=== PATIENT | male | born 1980 | race Caucasian/White ===

== ENCOUNTER 2016-12-18 12:17 | Emergency (ER) | payer MEDICAID, OTHER ==
[2016-12-18 12:41] VITALS: BP 149/85
--- NOTE | 2016-12-18 13:01 | EDM.PDOCBH ---
ED HPI GENERAL MEDICAL PROBLEM - General Chief Complaint: Drug or Alcohol Abuse Stated Complaint: DETOX Time Seen by Provider: 12/18/16 12:56 Source of Information: Reports: Patient, RN Notes Reviewed History Limitations: Reports: No Limitations - History of Present Illness INITIAL COMMENTS - FREE TEXT/NARRATIVE: 36-year-old gentleman presents emergency department today requesting to go to detoxification facility, he was recently released from detox unfortunately he did not do well while out started consuming alcohol again last drink was this morning he would like to return he has no other complaints denies Pain Score (Numeric/FACES): 0 - Related Data Allergies Allergy/AdvReac Type Severity Reaction Status Date / Time No Known Allergies Allergy Verified 12/18/16 12:44 Home Meds: Home Meds Acetaminophen [Tylenol Extra Strength] 1,000 mg ORAL.INH Q4HR PRN 08/16/14 [ History] Citalopram Hydrobromide [Celexa] 20 mg PO DAILY 12/18/16 [History] Past Medical History Psychiatric History: Reports: Addiction - Past Surgical History HEENT Surgical History: Reports: Other (See Below) Other HEENT Surgeries/Procedures: ear surgery x 2 Social & Family History - Tobacco Use Smoking Status *Q: Current Every Day Smoker Years of Tobacco use: 14 Packs/Tins Daily: 1 Used Tobacco, but Quit: No Month Tobacco Last Used: 1 Second Hand Smoke Exposure: Yes - Alcohol Use Days Per Week of Alcohol Use: 7 Number of Drinks Per Day: 5 Total Drinks Per Week: 35 - Recreational Drug Use Recreational Drug Use: No ED ROS GENERAL - Review of Systems Review Of Systems: See Below Constitutional: Reports: No Symptoms Respiratory: Reports: No Symptoms Cardiovascular: Reports: No Symptoms GI/Abdominal: Reports: No Symptoms Psychiatric: Reports: Cravings ED EXAM, BEHAVIORAL HEALTH - Physical Exam Exam: See Below Exam Limited By: No Limitations General Appearance: Alert, WD/WN, No Apparent Distress Respiratory/Chest: No Respiratory Distress, Lungs Clear, Normal Breath Sounds, No Accessory Muscle Use Cardiovascular: Regular Rate, Rhythm, No Murmur COURSE, BEHAVIORAL HEALTH COMP - Course Vital Signs: Last Vital Signs Temp 98.6 F 12/18/16 12:40 Pulse 104 H 12/18/16 12:40 Resp 17 12/18/16 12:40 BP 149/85 H 12/18/16 12:40 Pulse Ox 96 12/18/16 12:40 Orders, Labs, Meds: Laboratory Tests 12/18/16 12/18/16 12/18/16 Range/Units 13:13 13:13 13:13 WBC 10.5 (4.5-11.0) K/uL RBC 4.76 (4.30-5.90) M/uL Hgb 15.1 H (12.0-15.0) g/dL Hct 44.0 (40.0-54.0) % MCV 92 (80-98) fL MCH 32 H (27-31) pg MCHC 34 (32-36) % Plt Count 271 (150-400) K/uL Neut % (Auto) 79 H (36-66) % Lymph % (Auto) 11 L (24-44) % [place] % (Auto) 10 H (2-6) % Eos % (Auto) 0 L (2-4) % Baso % (Auto) 0 (0-1) % Sodium 144 (140-148) mmol/L Potassium 3.2 L (3.6-5.2) mmol/L Chloride 105 (100-108) mmol/L Carbon Dioxide 31 (21-32) mmol/L Anion Gap 11.2 (5.0-14.0) mmol/L BUN 8 (7-18) mg/dL Creatinine 0.9 (0.8-1.3) mg/dL Est Cr Clr Drug Dosing 133.19 mL/min Estimated GFR (MDRD) > 60 (>60) Glucose 99 (74-106) mg/dL Calcium 8.6 (8.5-10.1) mg/dL Total Bilirubin 0.4 (0.2-1.0) mg/dL AST 99 H (15-37) U/L ALT 88 H (12-78) U/L Alkaline Phosphatase 102 (46-116) U/L Total Protein 7.5 (6.4-8.2) g/dL Albumin 4.0 (3.4-5.0) g/dL Globulin 3.5 (2.3-3.5) g/dL Albumin/Globulin Ratio 1.1 L (1.2-2.2) Urine Color Urine Appearance Urine pH (4.5-8.0) Ur Specific [place] (1.008-1.030) Urine Protein (NEGATIVE) mg/dL Urine Glucose (UA) (NEGATIVE) mg/dL Urine Ketones (NEGATIVE) mg/dL Urine Occult Blood (NEGATIVE) Urine Nitrite (NEGAITVE) Urine Bilirubin (NEGATIVE) Urine Urobilinogen (NORMAL) mg/dL Ur Leukocyte Esterase (NEGATIVE) Urine RBC (0-5) Urine WBC (0-5) Ur Epithelial Cells Amorphous Sediment Urine Bacteria Urine Mucus Urine Opiates Screen (NEGATIVE) Ur Oxycodone Screen (NEGATIVE) Urine Methadone Screen (NEGATIVE) Ur Propoxyphene Screen (NEGATIVE) Ur Barbiturates Screen (NEGATIVE) Ur Tricyclics Screen (NEGATIVE) Ur Phencyclidine Scrn (NEGATIVE) Ur Amphetamine Screen (NEGATIVE) U Methamphetamines Scrn (NEGATIVE) Urine MDMA Screen (NEGATIVE) U Benzodiazepines Scrn (NEGATIVE) U Cocaine Metab Screen (NEGATIVE) U Marijuana (THC) Screen (NEGATIVE) Ethyl Alcohol 129 mg/dL 12/18/16 12/18/16 Range/Units 13:24 13:24 WBC (4.5-11.0) K/uL RBC (4.30-5.90) M/uL Hgb (12.0-15.0) g/dL Hct (40.0-54.0) % MCV (80-98) fL MCH (27-31) pg MCHC (32-36) % Plt Count (150-400) K/uL Neut % (Auto) (36-66) % Lymph % (Auto) (24-44) % [place] % (Auto) (2-6) % Eos % (Auto) (2-4) % Baso % (Auto) (0-1) % Sodium (140-148) mmol/L Potassium (3.6-5.2) mmol/L Chloride (100-108) mmol/L Carbon Dioxide (21-32) mmol/L Anion Gap (5.0-14.0) mmol/L BUN (7-18) mg/dL Creatinine (0.8-1.3) mg/dL Est Cr Clr Drug Dosing mL/min Estimated GFR (MDRD) (>60) Glucose (74-106) mg/dL Calcium (8.5-10.1) mg/dL Total Bilirubin (0.2-1.0) mg/dL AST (15-37) U/L ALT (12-78) U/L Alkaline Phosphatase (46-116) U/L Total Protein (6.4-8.2) g/dL Albumin (3.4-5.0) g/dL Globulin (2.3-3.5) g/dL Albumin/Globulin Ratio (1.2-2.2) Urine Color Yellow Urine Appearance Clear Urine pH 8.0 (4.5-8.0) Ur Specific [place] 1.010 (1.008-1.030) Urine Protein Negative (NEGATIVE) mg/dL Urine Glucose (UA) Normal (NEGATIVE) mg/dL Urine Ketones Negative (NEGATIVE) mg/dL Urine Occult Blood Negative (NEGATIVE) Urine Nitrite Negative (NEGAITVE) Urine Bilirubin Negative (NEGATIVE) Urine Urobilinogen 1 (NORMAL) mg/dL Ur Leukocyte Esterase Negative (NEGATIVE) Urine RBC 0-5 (0-5) Urine WBC 0-5 (0-5) Ur Epithelial Cells Rare Amorphous Sediment Not seen Urine Bacteria Not seen Urine Mucus Not seen Urine Opiates Screen Negative (NEGATIVE) Ur Oxycodone Screen Negative (NEGATIVE) Urine Methadone Screen Negative (NEGATIVE) Ur Propoxyphene Screen Negative (NEGATIVE) Ur Barbiturates Screen Negative (NEGATIVE) Ur Tricyclics Screen Negative (NEGATIVE) Ur Phencyclidine Scrn Negative (NEGATIVE) Ur Amphetamine Screen Negative (NEGATIVE) U Methamphetamines Scrn Negative (NEGATIVE) Urine MDMA Screen Negative (NEGATIVE) U Benzodiazepines Scrn Negative (NEGATIVE) U Cocaine Metab Screen Negative (NEGATIVE) U Marijuana (THC) Screen Negative (NEGATIVE) Ethyl Alcohol mg/dL Departure - Departure Time of Disposition: 14:00 Disposition: DC/Tfer to Inpt Rehab Fac 62 Condition: Fair Clinical Impression: Alcohol abuse - Discharge Information Forms: ED Department Discharge - Assessment/Plan Plan: Assessment Acuity = acute Site and laterality = alcohol abuse and intoxication Etiology = alcohol Manifestations = none Location of injury = Home Lab values = potassium low at 3.2 consistent hypokalemia AST elevated at 99 ALTs elevated at 88 urinalysis negative alcohol is 129 urine drug screen negative Plan I did review lab work with him as well as his urinalysis and drug screen plan is to discharge to [place] or detoxification Patient was in agreement with the plan all questions were answered, they were instructed to return to the emergency department or call for worsening symptoms. This note was dictated using [employer] voice recognition software please call with any questions.
== END 2016-12-18 15:10 ==
LOC: JP.ED 12:17
DX: F10.129 Alcohol abuse with intoxication, unspecified (principal); Y90.6 Blood alcohol level of 120-199 mg/100 ml; F17.210 Nicotine dependence, cigarettes, uncomplicated; Z98.890 Other specified postprocedural states; Z79.899 Other long term (current) drug therapy
CPT/HCPCS: 36415; 80053; 80305; 81001; 85025; 99285; G0480; 99283

== ENCOUNTER 2017-01-30 05:23 | Emergency (ER) | payer BC, MEDICAID, OTHER ==
[2017-01-30 05:43] VITALS: BP 140/89
--- NOTE | 2017-01-30 05:49 | EDM.PDOCBH ---
ED HPI GENERAL MEDICAL PROBLEM - General Chief Complaint: Drug or Alcohol Abuse Stated Complaint: DETOX TO [facility] Time Seen by Provider: 01/30/17 05:27 Source of Information: Reports: Patient, RN Notes Reviewed History Limitations: Reports: No Limitations - History of Present Illness INITIAL COMMENTS - FREE TEXT/NARRATIVE: 36-year-old gentleman presents emergency department today requesting to go to detox he has been on a 1 week stretch of alcohol abuse, he is here for medical clearance has no complaints denies pain Pain Score (Numeric/FACES): 0 - Related Data Allergies Allergy/AdvReac Type Severity Reaction Status Date / Time No Known Allergies Allergy Verified 01/30/17 05:34 Home Meds: Home Meds Acetaminophen [Tylenol Extra Strength] 1,000 mg PO Q4HR PRN 08/16/14 [History] Citalopram Hydrobromide [Celexa] 20 mg PO DAILY 12/18/16 [History] Past Medical History Musculoskeletal History: Reports: Fracture, Other (See Below) Other Musculoskeletal History: left middle finger fracture Psychiatric History: Reports: Addiction - Infectious Disease History Infectious Disease History: Reports: Chicken Pox - Past Surgical History HEENT Surgical History: Reports: Other (See Below) Other HEENT Surgeries/Procedures: ear surgery x 2 Social & Family History - Tobacco Use Smoking Status *Q: Current Every Day Smoker Years of Tobacco use: 14 Packs/Tins Daily: 1 Used Tobacco, but Quit: No Month Tobacco Last Used: 1 Second Hand Smoke Exposure: Yes - Caffeine Use Caffeine Use: Reports: Energy Drinks, Soda - Alcohol Use Days Per Week of Alcohol Use: 7 Number of Drinks Per Day: 5 Total Drinks Per Week: 35 Date of Last Drink: 01/29/17 Time of Last Drink: 20:30 - Recreational Drug Use Recreational Drug Use: No ED ROS GENERAL - Review of Systems Review Of Systems: See Below Constitutional: Reports: No Symptoms Respiratory: Reports: No Symptoms Cardiovascular: Reports: No Symptoms GI/Abdominal: Reports: No Symptoms ED EXAM, BEHAVIORAL HEALTH - Physical Exam Exam: See Below Exam Limited By: No Limitations General Appearance: Alert, WD/WN, No Apparent Distress Respiratory/Chest: No Respiratory Distress, Lungs Clear, Normal Breath Sounds, No Accessory Muscle Use Cardiovascular: Regular Rate, Rhythm, No Murmur GI/Abdominal: Soft, Non-Tender COURSE, BEHAVIORAL HEALTH COMP - Course Vital Signs: Last Vital Signs Temp 98.2 F 01/30/17 05:42 Pulse 133 H 01/30/17 05:42 Resp 20 01/30/17 05:42 BP 140/89 01/30/17 05:42 Pulse Ox 99 01/30/17 05:42 Orders, Labs, Meds: Laboratory Tests 01/30/17 01/30/17 01/30/17 Range/Units 05:28 05:53 05:53 WBC 11.5 H (4.5-11.0) K/uL RBC 5.10 (4.30-5.90) M/uL Hgb 16.4 H (12.0-15.0) g/dL Hct 46.0 (40.0-54.0) % MCV 90 (80-98) fL MCH 32 H (27-31) pg MCHC 36 (32-36) % Plt Count 173 (150-400) K/uL Neut % (Auto) 77 H (36-66) % Lymph % (Auto) 15 L (24-44) % [place] % (Auto) 5 (2-6) % Eos % (Auto) 2 (2-4) % Baso % (Auto) 0 (0-1) % Sodium (140-148) mmol/L Potassium (3.6-5.2) mmol/L Chloride (100-108) mmol/L Carbon Dioxide (21-32) mmol/L Anion Gap (5.0-14.0) mmol/L BUN (7-18) mg/dL Creatinine (0.8-1.3) mg/dL Est Cr Clr Drug Dosing mL/min Estimated GFR (MDRD) (>60) Glucose (74-106) mg/dL Calcium (8.5-10.1) mg/dL Total Bilirubin (0.2-1.0) mg/dL AST (15-37) U/L ALT (12-78) U/L Alkaline Phosphatase (46-116) U/L Total Protein (6.4-8.2) g/dL Albumin (3.4-5.0) g/dL Globulin (2.3-3.5) g/dL Albumin/Globulin Ratio (1.2-2.2) Urine Color Yellow Urine Appearance Clear Urine pH 6.0 (4.5-8.0) Ur Specific [place] 1.020 (1.008-1.030) Urine Protein 100 H (NEGATIVE) mg/dL Urine Glucose (UA) 250 H (NEGATIVE) mg/dL Urine Ketones 15 H (NEGATIVE) mg/dL Urine Occult Blood Moderate (NEGATIVE) Urine Nitrite Negative (NEGAITVE) Urine Bilirubin Small (NEGATIVE) Urine Urobilinogen 4 (NORMAL) mg/dL Ur Leukocyte Esterase Negative (NEGATIVE) Urine RBC 0-5 (0-5) Urine WBC 0-5 (0-5) Ur Epithelial Cells Few Amorphous Sediment Few Urine Bacteria Many Urine Mucus Many Urine Opiates Screen Negative (NEGATIVE) Ur Oxycodone Screen Negative (NEGATIVE) Urine Methadone Screen Negative (NEGATIVE) Ur Propoxyphene Screen Negative (NEGATIVE) Ur Barbiturates Screen Negative (NEGATIVE) Ur Tricyclics Screen Negative (NEGATIVE) Ur Phencyclidine Scrn Negative (NEGATIVE) Ur Amphetamine Screen Negative (NEGATIVE) U Methamphetamines Scrn Negative (NEGATIVE) Urine MDMA Screen Negative (NEGATIVE) U Benzodiazepines Scrn Positive H (NEGATIVE) U Cocaine Metab Screen Negative (NEGATIVE) U Marijuana (THC) Screen Negative (NEGATIVE) Ethyl Alcohol mg/dL 01/30/17 01/30/17 Range/Units 05:57 05:57 WBC (4.5-11.0) K/uL RBC (4.30-5.90) M/uL Hgb (12.0-15.0) g/dL Hct (40.0-54.0) % MCV (80-98) fL MCH (27-31) pg MCHC (32-36) % Plt Count (150-400) K/uL Neut % (Auto) (36-66) % Lymph % (Auto) (24-44) % [place] % (Auto) (2-6) % Eos % (Auto) (2-4) % Baso % (Auto) (0-1) % Sodium 137 L (140-148) mmol/L Potassium 3.0 L (3.6-5.2) mmol/L Chloride 97 L (100-108) mmol/L Carbon Dioxide 30 (21-32) mmol/L Anion Gap 13.0 (5.0-14.0) mmol/L BUN 9 (7-18) mg/dL Creatinine 0.9 (0.8-1.3) mg/dL Est Cr Clr Drug Dosing 133.19 mL/min Estimated GFR (MDRD) > 60 (>60) Glucose 133 H (74-106) mg/dL Calcium 8.2 L (8.5-10.1) mg/dL Total Bilirubin 0.4 (0.2-1.0) mg/dL AST 619 H D (15-37) U/L ALT 638 H (12-78) U/L Alkaline Phosphatase 123 H (46-116) U/L Total Protein 7.6 (6.4-8.2) g/dL Albumin 4.1 (3.4-5.0) g/dL Globulin 3.5 (2.3-3.5) g/dL Albumin/Globulin Ratio 1.2 (1.2-2.2) Urine Color Urine Appearance Urine pH (4.5-8.0) Ur Specific [place] (1.008-1.030) Urine Protein (NEGATIVE) mg/dL Urine Glucose (UA) (NEGATIVE) mg/dL Urine Ketones (NEGATIVE) mg/dL Urine Occult Blood (NEGATIVE) Urine Nitrite (NEGAITVE) Urine Bilirubin (NEGATIVE) Urine Urobilinogen (NORMAL) mg/dL Ur Leukocyte Esterase (NEGATIVE) Urine RBC (0-5) Urine WBC (0-5) Ur Epithelial Cells Amorphous Sediment Urine Bacteria Urine Mucus Urine Opiates Screen (NEGATIVE) Ur Oxycodone Screen (NEGATIVE) Urine Methadone Screen (NEGATIVE) Ur Propoxyphene Screen (NEGATIVE) Ur Barbiturates Screen (NEGATIVE) Ur Tricyclics Screen (NEGATIVE) Ur Phencyclidine Scrn (NEGATIVE) Ur Amphetamine Screen (NEGATIVE) U Methamphetamines Scrn (NEGATIVE) Urine MDMA Screen (NEGATIVE) U Benzodiazepines Scrn (NEGATIVE) U Cocaine Metab Screen (NEGATIVE) U Marijuana (THC) Screen (NEGATIVE) Ethyl Alcohol 125 mg/dL Departure - Departure Time of Disposition: 06:38 Disposition: DC/Tfer to Inpt Rehab Fac 62 Condition: Fair Clinical Impression: Alcohol abuse - Discharge Information Referrals: PCP,None [Primary Care Provider] - Forms: ED Department Discharge - Assessment/Plan Plan: Assessment Acuity = chronic Site and laterality = alcohol abuse and intoxication Etiology = alcohol Manifestations = elevated liver enzymes Location of injury = Home Lab values = WBC elevated 11.5 consistent with leukocytosis, sodium low at 137 consistent hyponatremia potassium low at 3.0 consistent hypokalemia AST elevated at 619 ALTs elevated at 638 consistent elevated liver enzymes urinalysis is a protein of 100 consistent proteinuria glucose of 250 consistent glucose urea ketones of 15 consistent ketonuria urine drug screen positive for benzodiazepines alcohol level is 125 Plan I did review lab work with him plan is to discharge to [place] Patient was in agreement with the plan all questions were answered, they were instructed to return to the emergency department or call for worsening symptoms. This note was dictated using [employer] voice recognition software please call with any questions.
== END 2017-01-30 08:30 ==
LOC: JP.ED 05:23
DX: F10.129 Alcohol abuse with intoxication, unspecified (principal); Y90.6 Blood alcohol level of 120-199 mg/100 ml; F17.210 Nicotine dependence, cigarettes, uncomplicated; Z98.890 Other specified postprocedural states; Z79.899 Other long term (current) drug therapy
CPT/HCPCS: 36415; 80053; 80305; 81001; 85025; 99285; G0480; 99284

== ENCOUNTER 2017-03-12 05:46 | Emergency (ER) | payer OTHER, MEDICAID ==
[2017-03-12 06:01] VITALS: BP 136/72
[2017-03-12] MEDS ORDERED: LORazepam 1 MG Tab PO ONE (06:16)
--- NOTE | 2017-03-12 06:21 | EDM.PDOCBH ---
ED HPI GENERAL MEDICAL PROBLEM - General Chief Complaint: Drug or Alcohol Abuse Stated Complaint: DETOX Time Seen by Provider: 03/12/17 06:16 Source of Information: Reports: Patient, Family History Limitations: Reports: No Limitations - History of Present Illness INITIAL COMMENTS - FREE TEXT/NARRATIVE: pt has a history of having a problem if he takes one drink he can,t stop. He was working in [employer] [facility] [employer] [employer] and was living in a [place]. He has been drinking about a liter of vodka daily. He was at [facility] in November and he did go through treatmnt at that time. He immediately started drinking when he got out. He was dry for about 3 weeks and started drinking again. He is marrid and has 4 kids. Onset: Gradual, Other (Pr has been drinking very heavy for the past week. ) Duration: Day(s): Associated Symptoms: Reports: Other (pt is starting to withdraw and is feeling very shaky He denies the use of street drugs. .) general Pain Score (Numeric/FACES): 8 - Related Data Allergies Allergy/AdvReac Type Severity Reaction Status Date / Time No Known Allergies Allergy Verified 03/12/17 05:53 Home Meds: Home Meds Acetaminophen [Tylenol Extra Strength] 1,000 mg PO Q4HR PRN 08/16/14 [History] Citalopram Hydrobromide [Celexa] 20 mg PO DAILY 12/18/16 [History] Past Medical History Musculoskeletal History: Reports: Fracture, Other (See Below) Other Musculoskeletal History: left middle finger fracture Psychiatric History: Reports: Addiction, Other (See Below) Other Psychiatric History: alcohol - Infectious Disease History Infectious Disease History: Reports: Chicken Pox - Past Surgical History HEENT Surgical History: Reports: Other (See Below) Other HEENT Surgeries/Procedures: ear surgery x 2 Social & Family History - Tobacco Use Smoking Status *Q: Current Every Day Smoker Years of Tobacco use: 14 Packs/Tins Daily: 1 Used Tobacco, but Quit: No Month Tobacco Last Used: 1 Second Hand Smoke Exposure: Yes - Caffeine Use Caffeine Use: Reports: Energy Drinks, Soda, Tea - Alcohol Use Days Per Week of Alcohol Use: 7 Number of Drinks Per Day: 5 Total Drinks Per Week: 35 Date of Last Drink: 03/11/17 Time of Last Drink: 21:00 - Recreational Drug Use Recreational Drug Use: No ED ROS GENERAL - Review of Systems Review Of Systems: See Below Constitutional: Reports: No Symptoms HEENT: Reports: No Symptoms Respiratory: Reports: No Symptoms Cardiovascular: Reports: No Symptoms Endocrine: Reports: No Symptoms GI/Abdominal: Reports: No Symptoms : Reports: No Symptoms Musculoskeletal: Reports: No Symptoms Skin: Reports: No Symptoms ED EXAM, BEHAVIORAL HEALTH - Physical Exam Exam: See Below Text/Narrative:: pt arrived with a history of drinking very heavily for the past week. He was at [facility] the past November.. He did go through treatment at that time. Exam Limited By: No Limitations General Appearance: Alert, Anxious, Mild Distress Ears: Normal TMs Nose: Normal Inspection Throat/Mouth: Normal Inspection Head: Atraumatic Neck: Normal Inspection Respiratory/Chest: No Respiratory Distress, Other ( Pt has multiple scratches and lacerations that are old on his chest. He is current with his tetanus. ) Cardiovascular: Regular Rate, Rhythm, Tachycardia, Other (pt is starting to withdraw at this point. ) GI/Abdominal: Soft (Male) Exam: Deferred Rectal (Males) Exam: Deferred Back Exam: Normal Inspection Extremities: Normal Inspection Neurological: Alert, Normal Cognition, Other (pt is starting to withdraw and is very shakey. ) Psychiatric: Alert, Normal Cognition COURSE, BEHAVIORAL HEALTH COMP - Course Vital Signs: Last Vital Signs Temp 36.9 C 03/12/17 06:00 Pulse 146 H 03/12/17 06:00 Resp 20 03/12/17 06:00 BP 136/72 03/12/17 06:00 Pulse Ox 96 03/12/17 06:00 Orders, Labs, Meds: Laboratory Tests 03/12/17 03/12/17 03/12/17 Range/Units 05:56 05:56 05:56 WBC 9.7 (4.5-11.0) K/uL RBC 5.30 (4.30-5.90) M/uL Hgb 16.9 H (12.0-15.0) g/dL Hct 47.5 (40.0-54.0) % MCV 90 (80-98) fL MCH 32 H (27-31) pg MCHC 36 (32-36) % Plt Count 321 (150-400) K/uL Neut % (Auto) 70 H (36-66) % Lymph % (Auto) 20 L (24-44) % [place] % (Auto) 10 H (2-6) % Eos % (Auto) 1 L (2-4) % Baso % (Auto) 0 (0-1) % Sodium 137 L (140-148) mmol/L Potassium 4.5 (3.6-5.2) mmol/L Chloride 96 L (100-108) mmol/L Carbon Dioxide 29 (21-32) mmol/L Anion Gap 16.5 H (5.0-14.0) mmol/L BUN 10 (7-18) mg/dL Creatinine 1.0 (0.8-1.3) mg/dL Est Cr Clr Drug Dosing 119.88 mL/min Estimated GFR (MDRD) > 60 (>60) Glucose 150 H (74-106) mg/dL Calcium 9.6 D (8.5-10.1) mg/dL Total Bilirubin 0.6 (0.2-1.0) mg/dL AST 113 H D (15-37) U/L ALT 95 H (12-78) U/L Alkaline Phosphatase 119 H (46-116) U/L Total Protein 7.6 (6.4-8.2) g/dL Albumin 4.3 (3.4-5.0) g/dL Globulin 3.3 (2.3-3.5) g/dL Albumin/Globulin Ratio 1.3 (1.2-2.2) Urine Color Urine Appearance Urine pH (4.5-8.0) Ur Specific [place] (1.008-1.030) Urine Protein (NEGATIVE) mg/dL Urine Glucose (UA) (NEGATIVE) mg/dL Urine Ketones (NEGATIVE) mg/dL Urine Occult Blood (NEGATIVE) Urine Nitrite (NEGAITVE) Urine Bilirubin (NEGATIVE) Urine Urobilinogen (NORMAL) mg/dL Ur Leukocyte Esterase (NEGATIVE) Urine RBC (0-5) Urine WBC (0-5) Ur Epithelial Cells Amorphous Sediment Urine Bacteria Urine Mucus Urine Opiates Screen (NEGATIVE) Ur Oxycodone Screen (NEGATIVE) Urine Methadone Screen (NEGATIVE) Ur Propoxyphene Screen (NEGATIVE) Ur Barbiturates Screen (NEGATIVE) Ur Tricyclics Screen (NEGATIVE) Ur Phencyclidine Scrn (NEGATIVE) Ur Amphetamine Screen (NEGATIVE) U Methamphetamines Scrn (NEGATIVE) Urine MDMA Screen (NEGATIVE) U Benzodiazepines Scrn (NEGATIVE) U Cocaine Metab Screen (NEGATIVE) U Marijuana (THC) Screen (NEGATIVE) Ethyl Alcohol 30 mg/dL 03/12/17 03/12/17 Range/Units 06:05 06:05 WBC (4.5-11.0) K/uL RBC (4.30-5.90) M/uL Hgb (12.0-15.0) g/dL Hct (40.0-54.0) % MCV (80-98) fL MCH (27-31) pg MCHC (32-36) % Plt Count (150-400) K/uL Neut % (Auto) (36-66) % Lymph % (Auto) (24-44) % [place] % (Auto) (2-6) % Eos % (Auto) (2-4) % Baso % (Auto) (0-1) % Sodium (140-148) mmol/L Potassium (3.6-5.2) mmol/L Chloride (100-108) mmol/L Carbon Dioxide (21-32) mmol/L Anion Gap (5.0-14.0) mmol/L BUN (7-18) mg/dL Creatinine (0.8-1.3) mg/dL Est Cr Clr Drug Dosing mL/min Estimated GFR (MDRD) (>60) Glucose (74-106) mg/dL Calcium (8.5-10.1) mg/dL Total Bilirubin (0.2-1.0) mg/dL AST (15-37) U/L ALT (12-78) U/L Alkaline Phosphatase (46-116) U/L Total Protein (6.4-8.2) g/dL Albumin (3.4-5.0) g/dL Globulin (2.3-3.5) g/dL Albumin/Globulin Ratio (1.2-2.2) Urine Color Yellow Urine Appearance Clear Urine pH 6.0 (4.5-8.0) Ur Specific [place] 1.015 (1.008-1.030) Urine Protein Negative (NEGATIVE) mg/dL Urine Glucose (UA) Normal (NEGATIVE) mg/dL Urine Ketones Negative (NEGATIVE) mg/dL Urine Occult Blood Negative (NEGATIVE) Urine Nitrite Negative (NEGAITVE) Urine Bilirubin Negative (NEGATIVE) Urine Urobilinogen 1 (NORMAL) mg/dL Ur Leukocyte Esterase Negative (NEGATIVE) Urine RBC Not seen (0-5) Urine WBC Not seen (0-5) Ur Epithelial Cells Not seen Amorphous Sediment Rare Urine Bacteria Not seen Urine Mucus Rare Urine Opiates Screen Negative (NEGATIVE) Ur Oxycodone Screen Negative (NEGATIVE) Urine Methadone Screen Negative (NEGATIVE) Ur Propoxyphene Screen Negative (NEGATIVE) Ur Barbiturates Screen Negative (NEGATIVE) Ur Tricyclics Screen Negative (NEGATIVE) Ur Phencyclidine Scrn Negative (NEGATIVE) Ur Amphetamine Screen Negative (NEGATIVE) U Methamphetamines Scrn Negative (NEGATIVE) Urine MDMA Screen Negative (NEGATIVE) U Benzodiazepines Scrn Negative (NEGATIVE) U Cocaine Metab Screen Negative (NEGATIVE) U Marijuana (THC) Screen Negative (NEGATIVE) Ethyl Alcohol mg/dL Medications Discontinued Medications Generic Name Dose Route Start Last Admin Trade Name Payal PRN Reason Stop Dose Admin Lorazepam 1 mg 03/12/17 06:16 03/12/17 06:28 Ativan PO 03/12/17 06:17 1 mg ONETIME ONE Administration Medical Clearance: 03/12/17 06:27 Pt was given ativan 1 mg. 03/12/17 06:[address] drugs in the urine. His lab work looks ok. Will transfer to [facility], [place]. Departure - Departure Time of Disposition: 06:31 Disposition: DC/Tfer to [facility]Unit 65 Condition: Fair Clinical Impression: Alcohol abuse - Discharge Information Referrals: PCP,None [Primary Care Provider] - Forms: ED Department Discharge Care Plan Goals: transfer to [facility], [place].
== END 2017-03-12 07:05 ==
LOC: JP.ED 05:46
DX: F10.10 Alcohol abuse, uncomplicated (principal); Y90.1 Blood alcohol level of 20-39 mg/100 ml; F17.210 Nicotine dependence, cigarettes, uncomplicated; Z79.899 Other long term (current) drug therapy
CPT/HCPCS: 36415; 80053; 80305; 81001; 85025; 99285; A9270; G0480; 99284

== ENCOUNTER 2017-03-20 19:39 | Emergency (ER) | payer MEDICAID, OTHER ==
--- NOTE | 2017-03-20 20:54 | EDM.PDOCBH ---
ED HPI GENERAL MEDICAL PROBLEM - General Chief Complaint: Drug or Alcohol Abuse Stated Complaint: eval Time Seen by Provider: 03/20/17 20:00 Source of Information: Reports: Patient, Family History Limitations: Reports: Intoxication - History of Present Illness INITIAL COMMENTS - FREE TEXT/NARRATIVE: 36-year-old male with chronic alcoholism presents intoxicated asking to go to [place] for detox. Onset: Other (Has been drinking for several days) Severity: Moderate Generalized Pain Score (Numeric/FACES): 5 - Related Data Allergies Allergy/AdvReac Type Severity Reaction Status Date / Time No Known Allergies Allergy Verified 03/20/17 19:55 Home Meds: Home Meds Acetaminophen [Tylenol Extra Strength] 1,000 mg PO Q4HR PRN 08/16/14 [History] Citalopram Hydrobromide [Celexa] 20 mg PO DAILY 12/18/16 [History] Past Medical History Musculoskeletal History: Reports: Fracture, Other (See Below) Other Musculoskeletal History: left middle finger fracture Psychiatric History: Reports: Addiction, Depression, Other (See Below) Other Psychiatric History: alcohol - Infectious Disease History Infectious Disease History: Reports: Chicken Pox - Past Surgical History HEENT Surgical History: Reports: Other (See Below) Other HEENT Surgeries/Procedures: ear surgery x 2 Social & Family History - Tobacco Use Smoking Status *Q: Heavy Tobacco Smoker Years of Tobacco use: 15 Packs/Tins Daily: 1 Used Tobacco, but Quit: No Month Tobacco Last Used: 1 Second Hand Smoke Exposure: Yes - Caffeine Use Caffeine Use: Reports: Energy Drinks, Soda, Tea - Alcohol Use Days Per Week of Alcohol Use: 7 Number of Drinks Per Day: 5 Total Drinks Per Week: 35 - Recreational Drug Use Recreational Drug Use: No ED ROS GENERAL - Review of Systems Review Of Systems: See Below Constitutional: Denies: Fever Respiratory: Denies: Shortness of Breath GI/Abdominal: Denies: Nausea, Vomiting Skin: Reports: No Symptoms Neurological: Denies: Headache ED EXAM, BEHAVIORAL HEALTH - Physical Exam Exam: See Below Exam Limited By: Intoxication General Appearance: Alert, No Apparent Distress Eye Exam: Bilateral Eye: EOMI (No jaundice) Head: Atraumatic Respiratory/Chest: No Respiratory Distress Cardiovascular: Regular Rate, Rhythm Neurological: Alert Psychiatric: Other (Fairly intoxicated) Skin Exam: Warm, Dry COURSE, BEHAVIORAL HEALTH COMP - Course Vital Signs: Last Vital Signs Temp 96.4 F 03/20/17 19:53 Pulse 107 H 03/20/17 20:57 Resp 16 03/20/17 20:57 BP 147/98 H 03/20/17 20:57 Pulse Ox 98 03/20/17 20:57 Orders, Labs, Meds: Laboratory Tests 03/20/17 Range/Units 20:24 Ethyl Alcohol 351 mg/dL Re-Assessment/Re-Exam: EtOH level was 0.351. Parents will take him to [place] for admission. Departure - Departure Time of Disposition: 21:42 Disposition: DC/Tfer to Other 70 Condition: Fair Clinical Impression: Alcohol intoxication Qualifiers: Complication of substance-induced condition: uncomplicated Qualified Code(s): F10.920 - Alcohol use, unspecified with intoxication, uncomplicated - Discharge Information Instructions: Alcohol Intoxication, [id number] Referrals: PCP,None [Primary Care Provider] - Forms: ED Department Discharge Care Plan Goals: Go to [place] for detoxification, and plan on following with extended treatment if possible.
[2017-03-20 20:57] VITALS: BP 147/98
== END 2017-03-20 21:27 | disposition other institution (70) ==
LOC: JP.ED 19:39
DX: F10.129 Alcohol abuse with intoxication, unspecified (principal); F17.210 Nicotine dependence, cigarettes, uncomplicated; F32.9 Major depressive disorder, single episode, unspecified; Z79.899 Other long term (current) drug therapy; Y90.8 Blood alcohol level of 240 mg/100 ml or more
CPT/HCPCS: 36415; 99284; G0480; 99283

== ENCOUNTER 2017-04-12 23:00 | Emergency (ER) | payer OTHER, MEDICAID ==
[2017-04-12 23:24] VITALS: BP 128/73
[2017-04-13] MEDS ORDERED: Bacitracin Oint 1 GM U/D Packet TOP ONE (00:30)
[2017-04-13] MEDS ORDERED: Lidocaine 1% 20 ML MDV INJECT ONE (00:30)
--- NOTE | 2017-04-13 00:31 | EDM.PDOC ---
ED HPI GENERAL MEDICAL PROBLEM - General Chief Complaint: Behavioral/Psych Stated Complaint: MEDICAL VIA NORTH Time Seen by Provider: 04/12/17 23:30 Source of Information: Reports: Patient History Limitations: Reports: No Limitations - History of Present Illness INITIAL COMMENTS - FREE TEXT/NARRATIVE: pt has a 2 inch laceration on the wrist. He cut himself with a blade but denies that. He has had suicidal thoughts alot according to his family. he is drinking very heavily and will steal or badillo in order to be able to drink. He admits to being depressed. he is not working at this time. He [place] to [place] the [place] last [place] in order to drown himself. Onset: Other ( This has been going on for a long time. His family is very concerned. ) Duration: Chronic Associated Symptoms: Reports: Other (pt has a 2 inch laceration on his wrist. ) left wrist laceration Pain Score (Numeric/FACES): 6 - Related Data Allergies Allergy/AdvReac Type Severity Reaction Status Date / Time No Known Allergies Allergy Verified 03/20/17 19:55 Home Meds: Home Meds Acetaminophen [Tylenol Extra Strength] 1,000 mg PO Q4HR PRN 08/16/14 [History] Escitalopram [Lexapro] 20 mg PO DAILY 04/12/17 [History] hydrOXYzine HCl [hydrOXYzine] 50 mg PO QID PRN 04/12/17 [History] Past Medical History Musculoskeletal History: Reports: Fracture, Other (See Below) Other Musculoskeletal History: left middle finger fracture Psychiatric History: Reports: Addiction, Depression, Other (See Below) Other Psychiatric History: alcohol - Infectious Disease History Infectious Disease History: Reports: Chicken Pox - Past Surgical History HEENT Surgical History: Reports: Other (See Below) Other HEENT Surgeries/Procedures: ear surgery x 2 Social & Family History - Tobacco Use Smoking Status *Q: Current Every Day Smoker Years of Tobacco use: 14 Packs/Tins Daily: 1 Used Tobacco, but Quit: No Month Tobacco Last Used: 1 Second Hand Smoke Exposure: Yes - Caffeine Use Caffeine Use: Reports: Coffee, Energy Drinks - Alcohol Use Days Per Week of Alcohol Use: 7 Number of Drinks Per Day: 5 Total Drinks Per Week: 35 Date of Last Drink: 04/12/17 Time of Last Drink: 21:30 - Recreational Drug Use Recreational Drug Use: No ED ROS GENERAL - Review of Systems Review Of Systems: See Below Constitutional: Reports: No Symptoms HEENT: Reports: No Symptoms Respiratory: Reports: No Symptoms Cardiovascular: Reports: No Symptoms Endocrine: Reports: No Symptoms GI/Abdominal: Reports: No Symptoms : Reports: No Symptoms - Physical Exam Exam: See Below Text/Narrative:: pt arrived with a laceration to his wrist and is actively bleeding. He denies that this is self inflicted. He has been very depressed and has been drinking very heavily. Exam Limited By: No Limitations General Appearance: Alert, Anxious Ears: Normal TMs Nose: Normal Inspection Throat/Mouth: Normal Inspection Head Exam: Atraumatic Neck: Normal Inspection Respiratory/Chest: No Respiratory Distress Cardiovascular: Regular Rate, Rhythm GI/Abdominal: Soft, Non-Tender (Male) Exam: Deferred Rectal (Males) Exam: Deferred Neuro Exam (Abbreviated): Alert, Oriented, Normal Cognition, Other (pt is intoxicated) Back Exam: Normal Inspection Extremities: Normal Inspection Psychiatric: Anxious, Depressed Mood, Other (pt id dening the laceration-- he states he fell in the br. ) Course - Vital Signs Last Recorded V/S: Last Vital Signs Temp 36.1 C 04/12/17 23:24 Pulse 99 04/12/17 23:24 Resp 17 04/12/17 23:24 BP 128/73 04/12/17 23:24 Pulse Ox 97 04/12/17 23:24 - Orders/Labs/Meds Labs: Laboratory Tests 04/12/17 04/12/17 04/12/17 Range/Units 23:16 23:16 23:16 WBC 5.5 (4.5-11.0) K/uL RBC 5.02 (4.30-5.90) M/uL Hgb 16.4 H (12.0-15.0) g/dL Hct 46.2 (40.0-54.0) % MCV 92 (80-98) fL MCH 33 H (27-31) pg MCHC 36 (32-36) % Plt Count 259 (150-400) K/uL Neut % (Auto) 49 (36-66) % Lymph % (Auto) 34 (24-44) % [place] % (Auto) 16 H (2-6) % Eos % (Auto) 1 L (2-4) % Baso % (Auto) 0 (0-1) % Sodium 141 (140-148) mmol/L Potassium 4.1 (3.6-5.2) mmol/L Chloride 102 (100-108) mmol/L Carbon Dioxide 29 (21-32) mmol/L Anion Gap 9.8 (5.0-14.0) mmol/L BUN 9 (7-18) mg/dL Creatinine 1.0 (0.8-1.3) mg/dL Est Cr Clr Drug Dosing TNP Estimated GFR (MDRD) > 60 (>60) Glucose 95 (74-106) mg/dL Calcium 8.6 (8.5-10.1) mg/dL Total Bilirubin 0.2 D (0.2-1.0) mg/dL AST 71 H (15-37) U/L ALT 72 (12-78) U/L Alkaline Phosphatase 117 H (46-116) U/L Total Protein 7.6 (6.4-8.2) g/dL Albumin 4.1 (3.4-5.0) g/dL Globulin 3.5 (2.3-3.5) g/dL Albumin/Globulin Ratio 1.2 (1.2-2.2) Urine Color Urine Appearance Urine pH (4.5-8.0) Ur Specific [place] (1.008-1.030) Urine Protein (NEGATIVE) mg/dL Urine Glucose (UA) (NEGATIVE) mg/dL Urine Ketones (NEGATIVE) mg/dL Urine Occult Blood (NEGATIVE) Urine Nitrite (NEGAITVE) Urine Bilirubin (NEGATIVE) Urine Urobilinogen (NORMAL) mg/dL Ur Leukocyte Esterase (NEGATIVE) Urine RBC (0-5) Urine WBC (0-5) Ur Epithelial Cells Amorphous Sediment Urine Bacteria Urine Mucus Urine Opiates Screen (NEGATIVE) Ur Oxycodone Screen (NEGATIVE) Urine Methadone Screen (NEGATIVE) Ur Propoxyphene Screen (NEGATIVE) Ur Barbiturates Screen (NEGATIVE) Ur Tricyclics Screen (NEGATIVE) Ur Phencyclidine Scrn (NEGATIVE) Ur Amphetamine Screen (NEGATIVE) U Methamphetamines Scrn (NEGATIVE) Urine MDMA Screen (NEGATIVE) U Benzodiazepines Scrn (NEGATIVE) U Cocaine Metab Screen (NEGATIVE) U Marijuana (THC) Screen (NEGATIVE) Ethyl Alcohol 256 mg/dL 04/13/17 04/13/17 Range/Units 00:17 00:17 WBC (4.5-11.0) K/uL RBC (4.30-5.90) M/uL Hgb (12.0-15.0) g/dL Hct (40.0-54.0) % MCV (80-98) fL MCH (27-31) pg MCHC (32-36) % Plt Count (150-400) K/uL Neut % (Auto) (36-66) % Lymph % (Auto) (24-44) % [place] % (Auto) (2-6) % Eos % (Auto) (2-4) % Baso % (Auto) (0-1) % Sodium (140-148) mmol/L Potassium (3.6-5.2) mmol/L Chloride (100-108) mmol/L Carbon Dioxide (21-32) mmol/L Anion Gap (5.0-14.0) mmol/L BUN (7-18) mg/dL Creatinine (0.8-1.3) mg/dL Est Cr Clr Drug Dosing Estimated GFR (MDRD) (>60) Glucose (74-106) mg/dL Calcium (8.5-10.1) mg/dL Total Bilirubin (0.2-1.0) mg/dL AST (15-37) U/L ALT (12-78) U/L Alkaline Phosphatase (46-116) U/L Total Protein (6.4-8.2) g/dL Albumin (3.4-5.0) g/dL Globulin (2.3-3.5) g/dL Albumin/Globulin Ratio (1.2-2.2) Urine Color Yellow Urine Appearance Clear Urine pH 5.0 (4.5-8.0) Ur Specific [place] 1.020 (1.008-1.030) Urine Protein Negative (NEGATIVE) mg/dL Urine Glucose (UA) Normal (NEGATIVE) mg/dL Urine Ketones Negative (NEGATIVE) mg/dL Urine Occult Blood Negative (NEGATIVE) Urine Nitrite Negative (NEGAITVE) Urine Bilirubin Negative (NEGATIVE) Urine Urobilinogen Normal (NORMAL) mg/dL Ur Leukocyte Esterase Negative (NEGATIVE) Urine RBC 0-5 (0-5) Urine WBC 0-5 (0-5) Ur Epithelial Cells Few Amorphous Sediment Not seen Urine Bacteria Few Urine Mucus Not seen Urine Opiates Screen Negative (NEGATIVE) Ur Oxycodone Screen Negative (NEGATIVE) Urine Methadone Screen Negative (NEGATIVE) Ur Propoxyphene Screen Negative (NEGATIVE) Ur Barbiturates Screen Negative (NEGATIVE) Ur Tricyclics Screen Negative (NEGATIVE) Ur Phencyclidine Scrn Negative (NEGATIVE) Ur Amphetamine Screen Negative (NEGATIVE) U Methamphetamines Scrn Negative (NEGATIVE) Urine MDMA Screen Negative (NEGATIVE) U Benzodiazepines Scrn Negative (NEGATIVE) U Cocaine Metab Screen Negative (NEGATIVE) U Marijuana (THC) Screen Negative (NEGATIVE) Ethyl Alcohol mg/dL Meds: Medications Discontinued Medications Generic Name Dose Route Start Last Admin Trade Name Payal PRN Reason Stop Dose Admin Bacitracin 1 dose 04/13/17 00:30 04/13/17 00:46 Bacitracin Oint 1 Gm TOP 04/13/17 00:31 1 dose ONETIME ONE Administration Lidocaine HCl 20 ml 04/13/17 00:30 04/13/17 00:46 Xylocaine 1% INJECT 04/13/17 00:31 20 ml ONETIME ONE Administration Lorazepam Confirm 04/13/17 03:08 04/13/17 03:08 Ativan Administered 04/13/17 03:09 Not Given Dose 1 mg .ROUTE .STK-MED ONE Lorazepam 1 mg 04/13/17 02:54 04/13/17 03:08 Ativan PO 04/13/17 02:55 1 mg ONETIME ONE Administration - Re-Assessments/Exams Free Text/Narrative Re-Assessment/Exam: 04/13/17 00:44 pt has a 2 inch laceration on the silva side of the left wrist. This is not deep to the tendons. The area was cleansed well anf infiltrated with lidocaine. It was closed with 5-0 prolene and 5-0 chromic/ It was dressed with bacatracin and a pressure dressing. 04/13/17 02:07 pt denied to the crisis team that he lacerated his wrist. He states he [place] in [place] This is not believable. He will not sign a consent for the conservation worker to talk to his mother regarding the situation. 04/13/17 02:30 pt hat a etoh level of .256. His drug screen was neg. He will go to detox in the am. He will stay here all nite, Departure - Departure Time of Disposition: 23:30 Disposition: DC/Tfer to Other 70 Condition: Fair Clinical Impression: Intoxication, Laceration of wrist - Discharge Information Instructions: Alcohol Use Disorder Referrals: Radha Hare NP [Primary Care Provider] - Forms: ED Department Discharge Additional Instructions: Discharge to [place]. Care Plan Goals: sr in 7-8 days, keep dry, no further ointments, to [place] for Detox and then treatment.
[2017-04-13] MEDS ORDERED: LORazepam 1 MG Tab PO ONE (02:54)
[2017-04-13] MEDS ORDERED: LORazepam 1 MG Tab ONE (03:08)
--- NOTE | 2017-04-17 10:43 | LETTER ---
04/15/2017 RE: JENNYXAVI Young : 1980 To Whom It May Concern: Xavi is a patient who was seen in the emergency room on 04/12/2017, at which time he had lacerated his right wrist and had a fairly deep 2-inch laceration on the wrist. The patient had a blade and there was blood on both sides of the blade that was found at home, and he had lacerated it with the blade. The patient denied this and stated that he fell in the bathroom. This is not a believable story, and this is an obvious laceration from a sharp object. The patient has a long history of very serious alcohol abuse and has been unable to work and is continually failing in terms of going back and drinking, even if he is detoxed and been in treatment. He has been in a couple of treatment programs recently and has not finished the treatment programs. The patient did have a period of sobriety for 4-1/2 years, he states, after a treatment program at [place]. The patient, I believe, is definitely at risk for himself and possibly for others when he is intoxicated. He has many suicidal thoughts and is continually stating that he does not want to go on living. Because he has failed on a voluntary basis, he needs to be committed and have a long-term care plan set up for him. He presently was sent to detox and is to go to treatment, and he has been informed by myself that, if he failed on this voluntary treatment program and did not complete it, he would be committed. Sincerely, /[id number]
== END 2017-04-13 08:14 | disposition other institution (70) ==
LOC: JP.ED 23:00
DX: S61.512A Laceration without foreign body of left wrist, initial encounter (principal); F10.129 Alcohol abuse with intoxication, unspecified; F32.9 Major depressive disorder, single episode, unspecified; F17.210 Nicotine dependence, cigarettes, uncomplicated; Z79.899 Other long term (current) drug therapy; Y90.8 Blood alcohol level of 240 mg/100 ml or more; W45.8XXA Other foreign body or object entering through skin, initial encounter
CPT/HCPCS: 12002; 36415; 80053; 80305; 81001; 85025; 99284; A9270; G0480

== ENCOUNTER 2019-12-30 08:40 | Emergency (ER) | payer MEDICAID, SELFPAY ==
[2019-12-30] MEDS ORDERED: Haloperidol Lactate 5 MG/ML SDV IVPUSH ONE (08:42)
[2019-12-30] MEDS ORDERED: Lactated Ringers 1,000 ML IV ONE (08:44)
--- NOTE | 2019-12-30 09:05 | EDM.PDOC ---
ED HPI GENERAL MEDICAL PROBLEM - General Chief Complaint: Drug or Alcohol Abuse Stated Complaint: MEDICAL VIA NORTH Time Seen by Provider: 12/30/19 08:40 Source of Information: Reports: Patient History Limitations: Reports: No Limitations - History of Present Illness INITIAL COMMENTS - FREE TEXT/NARRATIVE: This is a 39-year-old male who presents to the emergency department with abdominal concerns after using methamphetamine earlier this morning. History is limited due to agitation. EMS found him after he reportedly had used meth, he was concerned about blockages in his stomach and was shooting syringes of water into his rectum. On exam here he is concerned of diffuse abdominal pain, he is concerned that his appendix is burst or possibly that he is going to shoot kidne y stones out of him. He reports he has no history of prior abdominal surgeries. Right Abdomen Pain Score (Numeric/FACES): 10 - Related Data Allergies Allergy/AdvReac Type Severity Reaction Status Date / Time No Known Allergies Allergy Verified 12/30/19 08:42 Home Meds: Home Meds Acetaminophen [Tylenol Extra Strength] 1,000 mg PO Q4HR PRN 08/16/14 [History] Escitalopram [Lexapro] 40 mg PO DAILY 04/12/17 [History] Amitriptyline HCl 1 tab PO BEDTIME 12/30/19 [History] Amoxicillin 1 cap PO TID 12/30/19 [History] Gabapentin [Neurontin] 800 mg PO TID 12/30/19 [History] QUEtiapine Fumarate [Quetiapine Fumarate] 1 tab PO BEDTIME PRN 12/30/19 [History] QUEtiapine Fumarate [Quetiapine Fumarate] 1 tab PO TID PRN 12/30/19 [History] busPIRone [Buspar] 1.5 tab PO BID 12/30/19 [History] Past Medical History Musculoskeletal History: Reports: Fracture, Other (See Below) Other Musculoskeletal History: left middle finger fracture Psychiatric History: Reports: Addiction, Depression, Other (See Below) Other Psychiatric History: alcohol - Infectious Disease History Infectious Disease History: Reports: Chicken Pox - Past Surgical History HEENT Surgical History: Reports: Other (See Below) Other HEENT Surgeries/Procedures: ear surgery x 2 Social & Family History - Tobacco Use Smoking Status *Q: Current Every Day Smoker Years of Tobacco use: 20 Packs/Tins Daily: 1 - Caffeine Use Caffeine Use: Reports: Coffee, Energy Drinks - Recreational Drug Use Recreational Drug Use: Yes Recreational Drug Type: Reports: Methamphetamine ED ROS GENERAL - Review of Systems Review Of Systems: Unable To Obtain Reason Not Obtained: Agitation, drug use - Physical Exam Exam: See Below Exam Limited By: Other (agitation) General Appearance: Anxious Ears: Normal External Exam Nose: Normal Inspection Throat/Mouth: Other (poor dentition) Head Exam: Atraumatic Neck: Full Range of Motion Respiratory/Chest: Lungs Clear Cardiovascular: No Murmur, Tachycardia GI/Abdominal: Soft, Tender (diffuse tenderness) Rectal (Males) Exam: Normal Exam, Other (no evidence of trauma, bleeding, or foreign body) Back Exam: Normal Inspection Extremities: Normal Inspection Psychiatric: Anxious Skin Exam: Warm, Dry Course - Vital Signs Last Recorded V/S: Last Vital Signs Temp 35.8 C L 12/30/19 08:43 Pulse 104 H 12/30/19 12:53 Resp 14 12/30/19 12:53 BP 132/84 12/30/19 10:50 Pulse Ox 100 12/30/19 10:50 - Orders/Labs/Meds Labs: Laboratory Tests 12/30/19 12/30/19 12/30/19 Range/Units 08:55 08:55 12:30 WBC 12.2 H (4.5-11.0) K/uL RBC 4.60 (4.30-5.90) M/uL Hgb 13.9 D (12.0-15.0) g/dL Hct 40.1 (40.0-54.0) % MCV 87 (80-98) fL MCH 30 (27-31) pg MCHC 35 (32-36) % Plt Count 413 H (150-400) K/uL Sodium 139 L 141 (140-148) mmol/L Potassium 2.9 L* 4.4 (3.6-5.2) mmol/L Chloride 102 106 (100-108) mmol/L Carbon Dioxide 18 L 27 (21-32) mmol/L Anion Gap 21.9 H 8.3 (5.0-14.0) mmol/L BUN 11 10 (7-18) mg/dL Creatinine 1.4 H 1.1 (0.8-1.3) mg/dL Est Cr Clr Drug Dosing 80.85 102.90 mL/min Estimated GFR (MDRD) 57 L > 60 (>60) Glucose 93 96 (74-106) mg/dL Calcium 9.3 8.7 (8.5-10.1) mg/dL Total Bilirubin 1.4 H D (0.2-1.0) mg/dL AST 65 H (15-37) U/L ALT 38 (12-78) U/L Alkaline Phosphatase 85 (46-116) U/L Total Protein 7.2 (6.4-8.2) g/dL Albumin 4.3 (3.4-5.0) g/dL Globulin 2.9 (2.3-3.5) g/dL Albumin/Globulin Ratio 1.5 (1.2-2.2) Lipase 106 (73-393) U/L Meds: Medications Discontinued Medications Generic Name Dose Route Start Last Admin Trade Name Freq PRN Reason Stop Dose Admin Haloperidol Lactate 5 mg 12/30/19 08:42 12/30/19 08:54 Haldol IVPUSH 12/30/19 08:43 5 mg ONETIME ONE Administration Lactated Ringer's 1,000 mls @ 999 mls/hr 12/30/19 08:44 12/30/19 08:55 Ringers, Lactated IV 12/30/19 09:44 999 mls/hr BOLUS ONE Administration Potassium Chloride 20 meq/ 100 mls @ 50 mls/hr 12/30/19 09:34 12/30/19 09:47 Premix IV 12/30/19 11:33 Not Given ONETIME ONE Potassium Chloride 20 meq/ 112 mls @ 56 mls/hr 12/30/19 10:00 12/30/19 10:16 Lidocaine HCl 2 ml/ Sodium IV 12/30/19 11:59 56 mls/hr Chloride ONETIME ONE Administration Potassium Chloride 40 meq 12/30/19 09:34 12/30/19 09:46 Klor-Con M20 PO 12/30/19 09:35 40 meq ONETIME ONE Administration - Re-Assessments/Exams Free Text/Narrative Re-Assessment/Exam: This is a 39-year-old male who presents to the ER with concerns of abdominal pain. He is quite agitated and endorses methamphetamine use shortly before arrival. On exam he is found to be tachycardic. EMS reported he was putting syringes in his rectum prior to arrival to hospital, on examination I did not appreciate any rectal foreign body or trauma. He does have some diffuse abdominal tenderness however his exam is very unreliable. We are going to administer a dose of Haldol. He is receiving IV fluids. Will obtain screening labs, but will need to reassess him prior to pursuing any further work-up of his abdominal pain as he is such an unreliable historian. We will closely monitor him in the meantime for clearing of his mental status. 12/30/19 09:08 Free Text/Narrative Re-Assessment/Exam: Initial labs notable for hypokalemia to 2.9. Repleted with oral and IV potassium, repeat BMP is normal. Mental status is cleared. Abdomen reexamined multiple times and is completely benign. Do not believe need to pursue any further work-up. Patient is safe for discharge. 12/30/19 13:18 Departure - Departure Time of Disposition: 13:15 Disposition: Home, Self-Care 01 Clinical Impression: Substance abuse Abdominal pain Qualifiers: Abdominal location: generalized Qualified Code(s): R10.84 - Generalized abdominal pain - Discharge Information Instructions: Abdominal Pain, Adult, Chemical Dependency Referrals: PCP,None [Primary Care Provider] - Forms: ED Department Discharge Additional Instructions: After your potassium was repleted, your labs were normal and work-up are re- assuring there is not an emergent cause of your symptoms. Sepsis Event Note (ED) - Evaluation Sepsis Screening Result: No Definite Risk - Focused Exam Vital Signs: Vital Signs Temp Pulse Resp BP Pulse Ox 12/30/19 12:53 104 H 14 12/30/19 10:50 87 15 132/84 100 12/30/19 08:43 35.8 C L 123 H 24 H 121/61 100
[2019-12-30] MEDS ORDERED: Potassium Chloride 20 MEQ in Premix Bag 1 BAG IV ONE (09:34)
[2019-12-30] MEDS ORDERED: Potassium Chloride 20 MEQ Tab.ER PO ONE (09:34)
[2019-12-30] MEDS ORDERED: Potassium Chloride 20 MEQ, Lidocaine 1% 2 ML in Sodium Chloride 0.9% 100 ML IV ONE (10:00)
[2019-12-30 10:51] VITALS: BP 132/84
[2019-12-30 12:54] VITALS: PULSE 104
== END 2019-12-30 13:26 | disposition home or self-care (01) ==
LOC: JP.ED 08:40
DX: R10.84 Generalized abdominal pain (principal); F19.10 Other psychoactive substance abuse, uncomplicated; E87.6 Hypokalemia; R00.0 Tachycardia, unspecified; K00.7 Teething syndrome; F32.9 Major depressive disorder, single episode, unspecified; F17.210 Nicotine dependence, cigarettes, uncomplicated; Z79.899 Other long term (current) drug therapy
CPT/HCPCS: 36415; 80048; 80053; 83690; 85027; 96365; 96366; 96375; 99285; A9270; J1630; J2001; J3480; J7050; J7120

== ENCOUNTER 2022-02-23 14:37 | Emergency (ER) | payer MEDICAID ==
[~2022-02-23 14:37] MED LIST: Amphetamine/Dextroamphetamine Salts 10 MG Tab PO SCH; Escitalopram 20 MG Tab PO SCH; Gabapentin 400 MG Cap PO SCH
[2022-02-23] MEDS ORDERED: LORazepam 2 MG/ML SDV IVPUSH ONE (15:44)
[2022-02-23] MEDS ORDERED: Sodium Chloride 0.9% 1,000 ML IV SCH ×2 (15:45→17:45)
[2022-02-23 16:18] LABS: ESTIMATED GFR 111 mL/min (>60)
[2022-02-23 19:41] VITALS: BP 115/60; PULSE 110
[2022-02-23] MEDS ORDERED: buPROPion 150 MG Tab.ER ONE (21:06)
[2022-02-23] MEDS ORDERED: LORazepam 0.5 MG Tab PO ONE (21:58)
== END 2022-02-23 22:33 ==
LOC: JP.ED 14:37
DX: F10.239 Alcohol dependence with withdrawal, unspecified (principal); F17.210 Nicotine dependence, cigarettes, uncomplicated; Z79.899 Other long term (current) drug therapy; Z20.822 Contact with and (suspected) exposure to COVID-19
CPT/HCPCS: 36415; 80053; 80305; 80307; 83605; 85025; 87635; 96361; 96374; 99284; A9270; J2060; J7030; U0002

== ENCOUNTER 2022-07-22 06:16 | Emergency (ER) | payer MEDICAID ==
[2022-07-22 06:25] VITALS: PULSE 94
[2022-07-22] MEDS ORDERED: Sodium Chloride 0.9% 10 ML Syringe FLUSH PRN (07:04)
[2022-07-22 07:49] LABS: ESTIMATED GFR 111 mL/min (>60)
[2022-07-22 08:52] VITALS: BP 119/64
[2022-07-22] MEDS ORDERED: LORazepam 2 MG/ML SDV IVPUSH ONE (09:13)
== END 2022-07-22 09:58 ==
LOC: JP.ED 06:16
DX: F10.920 Alcohol use, unspecified with intoxication, uncomplicated (principal); F41.1 Generalized anxiety disorder; F39 Unspecified mood [affective] disorder; Y90.6 Blood alcohol level of 120-199 mg/100 ml; Z72.0 Tobacco use; Z20.822 Contact with and (suspected) exposure to COVID-19
CPT/HCPCS: 36415; 80053; 80305; 80307; 85025; 87635; 99284; J2060; J3490; U0002

== ENCOUNTER 2024-12-07 01:27 | Emergency (ER) | payer SELFPAY ==
[2024-12-07 01:39] VITALS: BP 141/77; PULSE 87
[2024-12-07 01:43] LABS: BASOPHILS ABSOLUTE AUTO 0.04 K/uL (0.00-0.10); BASOPHILS PERCENT AUTO 0.6 % (0.1-1.3); EOSINOPHILS ABSOLUTE AUTO 0.13 K/uL (0.00-0.40); EOSINOPHILS PERCENT AUTO 1.9 % (0.0-5.4); IMMATURE GRAN ABSOLUTE AUTO 0.04 K/uL (0.00-0.23); IMMATURE GRAN PERCENT AUTO 0.6 % (0.0-0.7); LYMPHOCYTES ABSOLUTE AUTO 1.31 K/uL (0.8-3.3); LYMPHOCYTES PERCENT AUTO 19.2 % (11.4-47.7); MONOCYTES ABSOLUTE AUTO 0.98 K/uL (0.20-0.90); MONOCYTES PERCENT AUTO 14.4 % (3.3-12.6); NEUTROPHILS ABSOLUTE AUTO 4.31 K/uL (1.0-7.6); NEUTROPHILS PERCENT AUTO 63.3 % (40.0-78.1); PLATELET COUNT,PLT 310 K/uL (130-375); RED BLOOD CELL COUNT 4.49 M/uL (4.14-5.76); WHITE BLOOD CELL COUNT,WBC 6.8 K/uL (3.2-11.0)
[2024-12-07 02:06] LABS: A/G RATIO 1.0 (1.2-2.2); ALANINE AMINOTRANSFERASE,ALT 29 U/L (12-78); ASPARTATE AMNIOTRANSFERASE,AST 30 U/L (15-37); BILIRUBIN TOTAL 0.3 mg/dL (0.2-1.0); BLOOD UREA NITROGEN,BUN 10 mg/dL (7-18); CARBON DIOXIDE,CO2 31 mmol/L (21-32); CHLORIDE,CL 99 mmol/L (100-108); CREATININE 1.0 mg/dL (0.8-1.3); EST CRCL DRUG DOSING (CG) 110.74 mL/min; ESTIMATED GFR 96 mL/min (>60); GLUCOSE RANDOM 101 mg/dL (74-106); POTASSIUM,K 3.2 mmol/L (3.6-5.2); PROTEIN TOTAL,TP 7.8 g/dL (6.4-8.2); SODIUM,NA 138 mmol/L (140-148); TROPONIN I HIGH SENSITIVITY 13.1 pg/mL (<=60.3)
[2024-12-07 02:16] LABS: APPEARANCE,URINE CLEAR (CLEAR); GLUCOSE,URINE NEGATIVE (NEGATIVE); OCCULT BLOOD,URINE MODERATE (NEGATIVE)
[2024-12-07 02:30] LABS: SQUAMOUS EPITHELIAL CELLS,UR RARE /HPF; UROTHELIAL CELLS,URINE NOT SEEN /HPF
== END 2024-12-07 02:29 ==
LOC: JP.ED 01:27
DX: R07.9 Chest pain, unspecified (principal); F41.1 Generalized anxiety disorder; Z79.899 Other long term (current) drug therapy
CPT/HCPCS: 36415; 80053; 81001; 84484; 85025; 93005; 99285